=== PATIENT | female | born 1950 | race Caucasian/White ===

== ENCOUNTER 2019-03-11 12:40 | Outpatient (CLI) | payer MEDICARE, OTHER ==
--- NOTE | 2019-03-11 15:33 | Diagnostic Imaging Report ---
PATIENT MR#: [id number] PATIENT PATIENT NAME: TOREY RAMOS DATE OF : 1950 REFERRING PHYSICIAN: NIXON ALMEIDA EXAM DATE: 03/11/2019 ACCESSION NUMBER: [id number] EXAM DESCRIPTION: KNEE 1 OR 2 VIEWS CLINICAL HISTORY: SWELLING IN RT KNEE X4 WEEKS, PT STATES NO KNOWN INJURY COMPARISON: No study for comparison is available at the time of interpretation. TECHNIQUE: DX right knee, 2 views Osseous structures: The osseous structures are normal with no evidence of fracture or dislocation. Joint spaces: The bones are well aligned. Small marginal osteophytes are noted at the patellar articu lar surface. There is mild narrowing of the lateral tibiofemoral particular space. Soft tissues: There is a mild-moderate suprapatellar effusion. IMPRESSION: Mild degenerative changes of the patellar articular surface and lateral tibiofemoral estrada culation, with mild-moderate effusion. Read by: Dr. Sharad Rehman Transcribed by: Sharad Rehman Transcribed Date: 03/11/2019 3:32:19 PM Electronically signed by: Dr. Sharad Rehman Date signed: 03/11/2019 3:32:42 PM
--- NOTE | 2019-03-16 11:42 | CONSULTATION REPORT ---
CHIEF COMPLAINT: Painful right knee. HISTORY OF PRESENT ILLNESS: This 68-year-old white female is seen for recommendations regarding treatment of painful right knee. She indicates both knees hurt just a little, but the right is really the more prominent of the two. She does not have a metal allergy. She notes that the knee started hurting about four weeks ago when she simply got up in the morning and had pain shooting along the medial aspect of her right knee, from mid thigh to about mid calf area. She says the pain is diffuse or allover, describes the quality of the pain as sharp and throbbing, moderate and slightly improving. She rates her pain at rest as 5/10 and pain with activity as 6/10. She says, however, that the pain is 90% better than what it was the first day or two. She does report decrease in mobility and some decrease in knee motion, also the presence of knee swelling and some stiffness. She indicates the right knee pain is worse with activity, weightbearing, walking, bending, lateral movements, getting in and out of a car or chair, rising after sitting, kneeling, squatting, standing, and any weightbearing. It is better with nonsteroidal medications. She has been taking Advil, two p.o. q.a.m. with breakfast. She has tried Tylenol, but it has not helped. She has used an elastic knee sleeve which helps during the day. She is not taking narcotic pain medication. She has not had any injections, viscosupplementation or steroids. She has done some physical therapy/exercise at home for several weeks. She has not been on a weight loss program. The patient does indicate she has some back pain intermittently in the lower back area. She has on occasion had some radiating pain into the knee and leg, but it feels different from what she currently experiences in the right knee. PAST MEDICAL HISTORY: Positive for dental problems for which she needs dentures. She denies infections in her teeth. She has never had knee surgery. The patient has completed her medical history intake form, reports positive for breast cancer, back pain, hypertension, hypercholesterolemia. She is status post mastectomy, right breast [address] Grijalva in [facility]. She had a left breast reduction, and she has had an implant in the right breast. FAMILY HISTORY: Negative for pulmonary embolism, blood clots, bone disease or rheumatoid disorder. Positive for cancer, hypertension, hypercholesterolemia in mother. SOCIAL HISTORY: She does not use nicotine and never has. She denies alcohol use currently or in the past. She denies illicit drug use, abuse or history of same. She does take fish oil. She is retired. ALLERGIES: She does report an allergy to codeine. REVIEW OF SYSTEMS: The patient's review of systems is positive for bleeding gum, nasal congestion, leg swelling, bronchitis, reports she does not have sleep apnea. She does have hypercholesterolemia. MEDICATIONS: She indicates her medications include hydrochlorothiazide 25 mg, lisinopril, pravastatin, potassium chloride, CoQ10, vitamin E, B and D, multivitamin, omega-3, Vision Multi 50+. PHYSICAL EXAMINATION: On physical exam, vital signs are recorded revealing temperature of 97.3, pulse 81, blood pressure 185/97, respiratory rate is 18. HEENT: Normocephalic. Neck: Supple. Lungs: Clear to percussion bilaterally. Cardiovascular: Regular, rate and rhythm. Abdomen: Soft and nontender. Extremities: The patient has tenderness on the medial joint line of the right knee with some extension distally onto anteromedial tibia. She has some exacerbation and discomfort with both varus and valgus stress while flexing and extending the right knee. The patient does have trace effusion in the right knee. She says it is sometimes more swollen than it is currently. She does have range of motion from near full extension to approximately 110 degrees of flexion. She does have negative Adelita, negative anterior/posterior drawer. No gross opening to varus/valgus stress at 0 or 30 degrees of flexion is noted. The patient has grossly symmetric quadriceps strength and tone. The patient has minimal to no crepitus on patellofemoral compression while flexing and extending the knee. She ambulates with a mild limp. X-RAYS: X-rays are obtained of the right knee, weightbearing AP and lateral views. These reveal peaking of the tibial spines. There is good femorotibial joint space preservation medially and laterally. The patient has some slight subchondral sclerotic change consistent with early degenerative disease. IMPRESSION: 1. Mild right knee degenerative joint disease, possibly with concurrent medial meniscal tear. 2. History of breast cancer. 3. Hypercholesterolemia. 4. Hypertension. 5. Low back pain history. 6. Mild obesity (BMI 30.04). RECOMMENDATIONS: Options are discussed with the patient, and she voices desire to take a nonaggressive approach. She said she thought about canceling the appointment as she was getting better. I did recommend that as she considers herself 90% better, I do not find any findings which suggest need for aggressive treatment. I did discuss with her the likely diagnoses, and I did recommend weight reductions efforts, discussed this at length with her for 5 to 10 minutes. I also recommend she continue the Advil if she does not want to try any prescription nonsteroidals. I did suggest topicals as potentially useful symptomatically. I did advise her that if she persists in having swelling or stiffness over the next month or two, she needs to get back in and we can consider doing an injection or an MRI of that knee. She is advised that if she feels at all unsteady on her feet, then she needs to use a walking cane. If that does occur, I advised her that she likely will need to see me back as well to consider further measures. All of her questions were answered to her voiced satisfaction. Thank you for the opportunity to evaluate this patient. Sincerely, Gavin Bunn MD/Breonna [id number] Job #[id number] mahamed MAR
== END 2019-03-11 13:10 ==
LOC: ORHTO 12:40
PROVIDERS: ATTEND Orthopaedic Surgery
DX: M17.11 Unilateral primary osteoarthritis, right knee (principal); E78.00 Pure hypercholesterolemia, unspecified; I10 Essential (primary) hypertension; E66.9 Obesity, unspecified; Z68.30 Body mass index [BMI] 30.0-30.9, adult; Z85.3 Personal history of malignant neoplasm of breast
CPT/HCPCS: 73560; 99203; G0463